=== PATIENT | female | born 1995 | race American Indian/Alaskan Native ===

== ENCOUNTER 2017-03-03 11:22 | Inpatient (IN) | payer OTHER ==
[2017-03-03] MEDS ORDERED: MINERAL OIL PO PRN (12:18)
[2017-03-03] MEDS ORDERED: ePHEDrine SULFATE IV PRN (12:18)
[2017-03-03] MEDS ORDERED: BRETHINE IVP PRN (12:18)
[2017-03-03] MEDS ORDERED: BRETHINE SUB-Q PRN (12:18)
--- NOTE | 2017-03-03 12:43 | History and Physical Report ---
History of Present Illness Date of examination: 03/03/17 Date of admission: 03/03/17 11:23 Chief complaint: SROM 10a, receives care with MD at [facility]. last visit 01/31/17. active labor History of present illness: @ 40+1, dated by LMP per patient. Pt denies complications with this . last visit to her OB was 01/31/17 denies medical hx denies surgical hx denies STI's del 04/2015 - vaginal, 6#7oz @ [facility]. complicated by pre-e Past History Past Medical History: no pertinent history Past Surgical History: no surgical history INS[employer]OR [employer] History: denies: abnormal PAP smear, cancer, chlamydia, gonorrhea, hepatitis B, hepatitis C, herpes, HIV, syphilis, trichomonas Family/Genetic History: none Social history: single. denies: smoking, alcohol abuse, prescription drug abuse , IV drug use - Obstetrical History Expected Date of Delivery: 03/02/17 Actual Gestation: 40 Week(s) 1 Day(s) : 2 Para: 1 Hx # Term Pregnancies: 1 Number of Pregnancies: 0 Spontaneous Abortions: 0 Induced : 0 Number of Living Children: 1 Medications and Allergies Allergies Allergy/AdvReac Type Severity Reaction Status Date / Time No Known Allergies Allergy Unverified 03/03/17 12:17 Active Meds: Active Medications Ephedrine Sulfate (Ephedrine Sulfate) 10 mg IV Q2M PRN PRN Reason: Hypotension Ampicillin Sodium (Polycillin/Ns 2 Gm/100 Ml) 2 gm in 100 mls @ 100 mls/hr IV ONCE ONE PRN Reason: Protocol Stop: 03/03/17 13:59 Lactated Ringer's (Lactated Ringers) 1,000 mls @ 125 mls/hr IV DIRECT MEKHI Oxytocin/Sodium Chloride (Pitocin/Ns 20 Unit/1000ml Drip) 20 units in 1,000 mls @ 125 mls/hr IV DIRECT MEKHI Oxytocin/Sodium Chloride (Pitocin/Ns 30 Unit/500ml) 30 units in 500 mls @ 1 mls /hr IV TITR MEKHI; 1 MILLIUNITS/MIN PRN Reason: Protocol Lidocaine (Xylocaine 2%) 20 ml INFILTRATI ONCE ONE Stop: 03/03/17 13:01 Mineral Oil (Mineral Oil) 30 ml PO QHS PRN PRN Reason: Constipation Terbutaline Sulfate (Brethine) 0.25 mg SUB-Q ONCE PRN PRN Reason: Hyperstimulation/Hypertonicity Terbutaline Sulfate (Brethine) 0.25 mg IVP ONCE PRN PRN Reason: Hyperstimulation/Hypertonicity Review of Systems All systems: negative - Vital Signs Vital signs: Vital Signs Pulse Pulse Ox 85 100 03/03/17 11:56 03/03/17 11:56 Temp Pulse Resp BP Pulse Ox 76 148/87 100 03/03/17 12:45 03/03/17 12:45 03/03/17 12:31 - Physical Exam Breasts: Positive: normal Cardiovascular: Regular rate Lungs: Positive: Clear to auscultation, Normal air movement Abdomen: Positive: normal appearance, soft Genitourinary (Female): Positive: normal external genitalia, normal perenium Vulva: both: normal Vagina: Positive: normal moisture Anus/Rectum: Positive: normal perianal skin Extremities: Positive: normal Deep Tendon Reflex Grade: Normal +2 Results All other labs normal. Assessment and Plan 21 y/0 @ 40+1, active labor, unknown GBS. Patient received care at w/ MD at [facility], [place]. Admission orders in EMR. Will send records request for prenatals. - Patient Problems (1) 40 weeks gestation of Current Visit: Yes Status: Acute (2) Active labor at term Current Visit: Yes Status: Acute (3) Hx of pre-eclampsia, prior , currently Current Visit: Yes Status: Acute Plan to address problem: will get Pre-e labs and monitor for s/s pre-e (4) SROM (spontaneous rupture of membranes) Onset Date: 03/03/17 Current Visit: Yes Status: Acute
--- NOTE | 2017-03-03 12:45 | Procedure Note ---
OB Delivery Note - Delivery Date of Delivery: 03/03/17 (precip del Male ) Bar And Filler Assembler: ERICA DAVISON Estimated blood loss: 200cc - Vaginal Delivery presentation: vertex Intrapartum events: PROM->1hr before delivery, precipitous labor- <3hr Delivery induction: none Delivery monitor: external FHT, external uterine Route of delivery: Delivery placenta: spontaneous Delivery cord: 3 umbilical vessels Episiotomy: none Delivery laceration: none Anesthesia: none Delivery comments: patient delivered shortly before I arrived, placenta del intact and complete. Cord blood collected. no lacerations to repair. fundus firm and lochia scant. EBL 200, apgars 8/9, wt 7#3. Mother and LDR stable. - Infant A at 1 minute: 8 at 5 minutes: 9 Infant Gender: Male (7#3oz)
[2017-03-03] MEDS ORDERED: LACTATED RINGERS 1,000 ML IV SCH (13:00)
[2017-03-03] MEDS ORDERED: PITOCin/NS 20 UNIT/1000ML DRIP 20 UNITS/1,000 ML BAG IV SCH ×2 (13:00→14:00)
[2017-03-03] MEDS ORDERED: POLYCILLIN/NS 2 GM/100 ML 2 GM/100 ML BAG IV ONE (13:00)
[2017-03-03] MEDS ORDERED: PITOCin/NS 30 UNIT/500ML 30 UNITS/500 ML BAG IV SCH (13:00)
[2017-03-03] MEDS ORDERED: XYLOCAINE 2% INFILTRATI ONE (13:00)
[2017-03-03] MEDS ORDERED: MOTRIN PO PRN (13:09)
[2017-03-03] MEDS ORDERED: TYLENOL PO PRN (13:50)
[2017-03-03] MEDS ORDERED: ZOFRAN IV PRN (13:50)
[2017-03-03] MEDS ORDERED: DULCOLAX PR PRN (13:50)
[2017-03-03] MEDS ORDERED: MILK OF MAGNESIA PO PRN (13:50)
[2017-03-03] MEDS ORDERED: PHENERGAN PO PRN (13:50)
[2017-03-03] MEDS ORDERED: SODIUM CHLORIDE FLUSH SYRINGE 10 ML IV SCH (13:50)
[2017-03-03] MEDS ORDERED: TUCKS PAD TP PRN (13:50)
[2017-03-03] MEDS ORDERED: LANSINOH TP PRN (13:50)
[2017-03-03] MEDS ORDERED: BENADRYL PO PRN (13:50)
[2017-03-03 14:15] LABS: Basophils # (Auto) 0.1 K/mm3 (0.0-0.1); Basophils % (Auto) 0.6 % (0.0-1.8); Eosinophils % (Auto) 0.3 % (0.0-4.3); Lymphocytes # (Auto) 1.5 K/mm3 (1.2-5.4); Lymphocytes % (Auto) 16.5 % (13.4-35.0); Mean Corpuscular HGB Conc 30 % (30-34); Mean Corpuscular Volume 71 fl (79-97); Monocytes # (Auto) 0.6 K/mm3 (0.0-0.8); Monocytes % (Auto) 6.9 % (0.0-7.3); Platelet Count 294 K/mm3 (140-440); Red Cell Distribution Width 19.9 % (13.2-15.2)
[2017-03-03 14:17] LABS: Hematocrit 33.1 % (30.3-42.9); Mean Corpuscular Hemoglobin 21 pg (28-32)
[2017-03-03 15:38] LABS: Alanine Aminotransferase 7 units/L (7-56); Uric Acid 4.8 mg/dL (3.5-7.6)
[2017-03-03 20:24] LABS: Bilirubin,Urine NEG (Negative); Blood,Urine LG (Negative); Color,Urine Yellow (Yellow); Nitrite,Urine NEG (Negative); Protein,Urine <15 mg/dL mg/dL (Negative); Urobilinogen,Urine < 2.0 mg/dL (<2.0)
[2017-03-03] MEDS: COLACE PO SCH (23:24)
[2017-03-03] MEDS: MOTRIN PO SCH (23:24)
[2017-03-04 00:45] LABS: Hematocrit 32.2 % (30.3-42.9); Hemoglobin 9.8 gm/dl (10.1-14.3)
[2017-03-04] MEDS: MOTRIN PO SCH ×4 (05:24→23:20)
[2017-03-04] MEDS ORDERED: BOOSTRIX IM ONE (06:00)
--- NOTE | 2017-03-04 09:01 | Discharge Summary ---
Providers - Providers Date of Admission: 03/03/17 11:23 Date of discharge: 03/04/17 (pt w/o complaints) Attending physician: CHIDI MCDONALD 03/03/17 13:50 Consult to Echocardiography Radiology Technologist [CONS] Routine Reason For Exam: assistance with , SNS Primary care physician: CHIDI MCDONALD Hospitalization Reason for admission: active labor Delivery: Episiotomy: none Laceration: none Incision: normal Other procedures: none complications: none Discharge diagnosis: IUP at term delivered baby: male Hospital course: uncomplicated vaginal delivery Pt w/o complaint VSS FF below umb Lochia scant Perineum intact H&H drop r/ t blood loss from delivery No s/sx of anemia Doing well s/p vag delivery P: d/c with instructions Pt will RTO for son's circ 1 week and PP visit in 4 weeks. Condition at discharge: Good Disposition: DC-01 TO HOME OR SELFCARE - Discharge Diagnoses (1) Normal spontaneous vaginal delivery Status: Acute Comment: RTO 4 weeks for care Plan - Provider Discharge Summary Activity: routine, no sex for 6 weeks, no heavy lifting 4 weeks, no strenuous exercise Diet: routine Instructions: routine Additional instructions: [] Smoking cessation referral if applicable(refer to patient education folder for contact #) [] Refer to [facility] Booklet Call your doctor immediately for: * Fever > 100.5 * Heavy vaginal bleeding ( >1 pad per hour) * Severe persistent headache * Shortness of breath * Reddened, hot, painful area to leg or breast * Drainage or odor from incision. * Keep incision clean and dry at all times and follow doctor's instructions regarding bathing/showering - Follow up plan Follow up: CHIDI MCDONALD MD [Primary Care Provider] - 7 Days (Call [phone] to schedule your visit in 4 weeks and your son's circumcision in one week. Bring the EMLA cream with you to his visit. DO NOT use it at home. Take medications as prescribed. Call with any concerns. [facility]: [address] [place] [address])
[2017-03-04] MEDS ORDERED: DEPO-PROVERA (CONTRACEPTION) IM ONE (09:10)
[2017-03-04] MEDS: COLACE PO SCH ×2 (12:00→22:23)
[2017-03-04] MEDS: PRENATAL VITAMIN PO SCH (18:07)
[2017-03-05] MEDS: MOTRIN PO SCH ×2 (05:23→13:42)
[2017-03-05] MEDS ORDERED: BOOSTRIX IM ONE (06:00)
[2017-03-05] MEDS ORDERED: DEPO-PROVERA (CONTRACEPTION) IM ONE (12:14)
[2017-03-05 12:49] VITALS: BP 129/88
[2017-03-05] MEDS: PRENATAL VITAMIN PO SCH (13:41)
== END 2017-03-05 14:30 | disposition home or self-care (01) | DRG 775 ==
LOC: LD 11:22 → TRG 11:22 → LD 11:23 → OB 14:20
PROVIDERS: ADMIT Obstetrics & Gynecology; ATTEND Obstetrics & Gynecology
PROC: 10E0XZZ Delivery of Products of Conception, External Approach (ICD-10-PCS; principal; 2017-03-03)
DX: O62.3 Precipitate labor (principal); O42.02 Full-term premature rupture of membranes, onset of labor within 24 hours of rupture; Z60.2 Problems related to living alone; Z3A.40 40 weeks gestation of pregnancy; Z37.0 Single live birth
CPT/HCPCS: 36415; 81001; 82565; 83615; 84450; 84460; 84550; 85014; 85018; 85025; 86592; 86706; 86762; 86850; 86900; 86901; 87806; 90471; 90715; 99211; G0463; J0290; J1050; J2590; J7120

== ENCOUNTER 2017-06-11 20:42 | Emergency (ER) | payer OTHER ==
[2017-06-11 22:16] LABS: HCG Qualitative,Urine Negative (Negative)
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
[2017-06-12] MEDS ORDERED: XYLOCAINE 1% MPF 5 mL INFILTRATI ONE (01:22)
[2017-06-12] MEDS ORDERED: NACL 0.9% IR ONE (01:22)
[2017-06-12] MEDS ORDERED: MOTRIN PO ONE (01:22)
[2017-06-12] MEDS ORDERED: KEFLEX PO ONE (01:23)
[2017-06-12 04:37] VITALS: BP 117/71
== END 2017-06-12 04:35 | disposition home or self-care (01) ==
LOC: ED 20:42
DX: S01.81XA Laceration without foreign body of other part of head, initial encounter (principal); Y04.0XXA Assault by unarmed brawl or fight, initial encounter; Y93.89 Activity, other specified; Y92.89 Other specified places as the place of occurrence of the external cause; Y99.8 Other external cause status
CPT/HCPCS: 70450; 81025

== ENCOUNTER 2017-06-18 18:37 | Emergency (ER) | payer OTHER ==
[2017-06-18 19:21] VITALS: BP 142/87
--- NOTE | 2017-06-18 21:23 | Emergency Department Report ---
Suture/Staple Removal - [facility] Chief Complaint: Laceration/Recheck/Suture Stated Complaint: SUTURE REMOVAL Time Seen by Provider: 06/18/17 21:23 When Sutures or Jaycee Placed: 5-7 Days Ago Wound Location: right eyebrow sutures placed 7 days ago. Patient states there were 5 ED Review of Systems ROS: Stated complaint: SUTURE REMOVAL Other details as noted in HPI Constitutional: denies: chills, fever Eyes: denies: eye pain, eye discharge, vision change ENT: denies: ear pain, throat pain Respiratory: denies: cough, shortness of breath, wheezing Cardiovascular: denies: chest pain, palpitations Endocrine: no symptoms reported Gastrointestinal: denies: abdominal pain, nausea, diarrhea Genitourinary: denies: urgency, dysuria, discharge Musculoskeletal: denies: back pain, joint swelling, arthralgia Skin: as per HPI (sutures placed above the right eyebrow 7 days ago). denies: rash, lesions Neurological: denies: headache, weakness, paresthesias Psychiatric: denies: anxiety, depression Hematological/Lymphatic: denies: easy bleeding, easy bruising ED Past Medical Hx - Past Medical History Previous Medical History?: No Hx Hypertension: No Hx Congestive Heart Failure: No Hx Diabetes: No Hx Deep Vein Thrombosis: No Hx Renal Disease: No Hx Sickle Cell Disease: No Hx Seizures: No Hx Asthma: No Hx COPD: No Hx HIV: No - Surgical History Past Surgical History?: No - Social History Smoking Status: Never Smoker Substance Use Type: None - Medications Home Medications: Home Medications Medication Instructions Recorded Confirmed Last Taken Type Docusate Sodium [Colace] 100 mg PO BID PRN #60 capsule 03/04/17 Unknown Rx Ferrous Sulfate [Feosol 325 MG tab] 325 mg PO BID #60 tablet 03/04/17 Unknown Rx Ibuprofen [Motrin 800 MG tab] 800 mg PO TID PRN #30 tablet 03/04/17 Unknown Rx Lidocain2.5%/Prilocai2.5% [Emla] 5 gm TP PRN #1 tube 03/04/17 Unknown Rx Cephalexin [Keflex] 500 mg PO Q8H 7 Days #21 capsule 06/12/17 Unknown Rx Ibuprofen [Motrin] 600 mg PO Q8H PRN #12 tablet 06/12/17 Unknown Rx Bacitracin Zinc Oint [Antibiotic 1 applicatio TP BID #1 tube 06/18/17 Unknown Rx Oint] Suture Removal Exam - Exam General: Vital signs noted. No distress. Alert and acting appropriately. Wound: No Pathologic Erythema, No Tenderness, No Drainage, No Pus, No Wound Dehiscence (area appears clean and no signs of infection or purulence no fluctuance no wound dehiscence.) Other Systems: All other systems reviewed and are unremarkable. ED Course Vital Signs 06/18/17 06/18/17 19:17 19:22 Temperature 98.3 F 98.3 F Pulse Rate 70 Blood Pressure 142/87 O2 Sat by Pulse 100 Oximetry ED Recheck MDM - Differential Diagnosis Suture/Staple Removal - Medical Decision Making A/P: Suture removal right eyebrow 1-topical bacitracin. No clinical signs of infection. No dehiscence. Has healed well 2-5 nylon sutures removed from site of laceration repair Critical care attestation.: If time is entered above; I have spent that time in minutes in the direct care of this critically ill patient, excluding procedure time. ED Disposition Clinical Impression: Visit for suture removal Disposition: DC-01 TO HOME OR SELFCARE Is pt being admited?: No Does the pt Need Aspirin: No Condition: Stable Instructions: Suture Removal (ED) Prescriptions: Bacitracin Zinc Oint [Antibiotic Oint] 1 applicatio TP BID #1 tube Referrals: [facility] [Provider Group] - 3-5 Days Forms: Work/School Release Form(ED) Time of Disposition: 21:48
== END 2017-06-18 21:50 | disposition home or self-care (01) ==
LOC: ED 18:37
DX: S01.111D Laceration without foreign body of right eyelid and periocular area, subsequent encounter (principal); X58.XXXD Exposure to other specified factors, subsequent encounter

== ENCOUNTER 2018-09-27 19:17 | Inpatient (IN) | payer OTHER ==
[2018-09-27 19:46] VITALS: BP 123/58
[2018-09-27] MEDS ORDERED: ZITHROMAX 500 MG in NACL 0.9% 250ML 250 ML IV ONE (20:00)
[2018-09-27] MEDS ORDERED: LACTATED RINGERS 1,000 ML IV SCH (20:00)
== END 2018-09-27 20:40 | disposition home or self-care (01) | DRG 833 ==
LOC: LD 19:17
PROVIDERS: ADMIT Obstetrics & Gynecology; ATTEND Obstetrics & Gynecology
DX: O98.813 Other maternal infectious and parasitic diseases complicating pregnancy, third trimester (principal); Z3A.38 38 weeks gestation of pregnancy; Z86.711 Personal history of pulmonary embolism; Z79.01 Long term (current) use of anticoagulants
CPT/HCPCS: G0378; J0456; J7050; J7120

== ENCOUNTER 2018-10-03 11:12 | Inpatient (IN) | payer OTHER ==
[2018-10-03] MEDS ORDERED: BRETHINE IVP PRN (12:56)
[2018-10-03] MEDS ORDERED: SUBLIMAZE IV PRN (12:56)
[2018-10-03] MEDS ORDERED: XYLOCAINE 2% INFILTRATI ONE (12:56)
[2018-10-03] MEDS ORDERED: BRETHINE SUB-Q PRN (12:56)
[2018-10-03] MEDS ORDERED: ZOFRAN IV PRN (12:56)
[2018-10-03] MEDS ORDERED: MINERAL OIL PO PRN (12:56)
[2018-10-03] MEDS ORDERED: PITOCin/NS 20 UNIT/1000ML DRIP 20 UNITS/1,000 ML BAG IV SCH (13:00)
[2018-10-03] MEDS ORDERED: PITOCin/NS 30 UNIT/500ML 30 UNITS/500 ML BAG IV SCH (13:00)
--- NOTE | 2018-10-03 13:28 | History and Physical Report ---
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 no EDC Calculations LMP: 01/10/2019 Past History : 3 Term Births: 2 Premature Births: 0 Living Children: 2 Para: 2 Mult. Births: 0 Prev : 0 Aborta: 0 Elect. Ab: 0 Spont. Ab: 0 Ectopics: 0 # 1 Delivery date: 03/03/2017 Weeks Gestation: 40+1 Delivery type: Vaginal Hours of labor: 2 Anesthesia type: none Delivery location: [facility] Infant Sex: male weight: 7.19 Comments: precip delivery # 2 Delivery date: 2016 Weeks Gestation: term labor: no Delivery type: Infant Sex: Male weight: 6#7oz Risk Factors: Smoked Tobacco Use: Never smoker Smokeless Tobacco Use: Never Passive smoke exposure: no Drug use: no HIV high-risk behavior: no Alcohol use: yes Drinks per day: <1 Exercise: no Seatbelt use: 100 % Past Medical History: PE - 08/2017 Past Surgical History: Negative Past Surgical History Past Medical History Anesthesia Complications: negative Anemia: negative Autoimmune Disorder: negative Bleeding Disorder: positive, hx PE 2017 Blood Transfusions: negative Breast Disease: negative Diabetes: negative Heart Disease: negative Hypertension: positive, pre-e with first delivery 2015 Hepatitis/Liver Disease: negative Kidney Disease/UTI: negative Neurologic/Epilepsy/Migraines: negative Phlebitis/Varicosities: negative Psychiatric: negative Pulmonary Disease/Asthma: negative Thyroid Disease: negative Surgery (Non-ebd teacher): Negative Past Surgical History Abnormal PAP: negative Family Hx: Lupus - sister DM - MGF Social Hx: Single no ETOH/Drugs/Smoking Working in [employer] Infection History Hx of STD: Trich HIV Risk Eval: no Hepatitis B Risk Eval: low risk Personal hx. of genital herpes: no Partner hx. of genital herpes: no Varicella/Chicken Pox Status: Unknown Genetic History Congenital Heart Defect: Mom: no Dad: no Shlomo Disease: Mom: no Dad: no Thalassemia Mom: no Dad: no Neural Tube Defect Mom: no Dad: no Down's Syndrome Mom: no Dad: no Ted-Sachs Mom: no Dad: no Sickle Cell Disease/Trait Mom: no Dad: no Hemophilia Mom: no Dad: no Muscular Dystrophy Mom: no Dad: no Cystic Fibrosis Mom: no Dad: no [place] Chorea Mom: no Dad: no Mental Retardation Mom: no Dad: no Fragile X Mom: no Dad: no Other Genetic/Chromosomal Disorder Mom: no Dad: no Child w/other defect Mom: no Dad: no Enviromental Exposures Xray Exposure: no Medication, drug, or alcohol use since LMP: no Chemical/Other Exposure: no Exposure to Cat Liter: no Hx of Parvovirus (Fifth Disease): no Occupational Exposure to Children: none Active Medications: LOVENOX 40 MG/0.4ML SUBCUTANEOUS SOLUTION (ENOXAPARIN SODIUM) 40mg SQ daily PLUS 27-1 MG ORAL TABLET ( VIT-FE FUMARATE-FA) 1 po daily Current Allergies (reviewed today): No known allergies Past History Past Medical History: other (see HPI) Past Surgical History: other (see HPI) 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 SPECIALIST History: other (see HPI) Family/Genetic History: other (see HPI) Social history: other (see HPI) - Obstetrical History : 3 Medications and Allergies Allergies Allergy/AdvReac Type Severity Reaction Status Date / Time No Known Allergies Allergy Verified 09/27/18 22:04 Home Medications Medication Instructions Recorded Confirmed Last Taken Type Docusate Sodium [Colace] 100 mg PO BID PRN #60 capsule 03/04/17 Unknown Rx Ferrous Sulfate [Feosol 325 MG tab] 325 mg PO BID #60 tablet 03/04/17 Unknown Rx Ibuprofen [Motrin 800 MG tab] 800 mg PO TID PRN #30 tablet 03/04/17 Unknown Rx Lidocain2.5%/Prilocai2.5% [Emla] 5 gm TP PRN #1 tube 03/04/17 Unknown Rx Cephalexin [Keflex] 500 mg PO Q8H 7 Days #21 capsule 06/12/17 Unknown Rx Ibuprofen [Motrin] 600 mg PO Q8H PRN #12 tablet 06/12/17 Unknown Rx Bacitracin Zinc Oint [Antibiotic 1 applicatio TP BID #1 tube 06/18/17 Unknown Rx Oint] Active Meds: Active Medications Ephedrine Sulfate (Ephedrine Sulfate) 10 mg IV Q2M PRN PRN Reason: Hypotension Fentanyl (Sublimaze) 100 mcg IV Q2H PRN PRN Reason: Labor Pain Oxytocin/Sodium Chloride (Pitocin/Ns 20 Unit/1000ml Drip) 20 units in 1,000 mls @ 125 mls/hr IV DIRECT MEKHI Oxytocin/Sodium Chloride (Pitocin/Ns 30 Unit/500ml) 30 units in 500 mls @ 4 mls/hr IV Q30MIN MEKHI; Protocol Lactated Ringer's (Lactated Ringers) 1,000 mls @ 125 mls/hr IV DIRECT MEKHI Mineral Oil (Mineral Oil) 30 ml PO QHS PRN PRN Reason: Constipation Ondansetron HCl (Zofran) 4 mg IV Q8H PRN PRN Reason: Nausea And Vomiting Terbutaline Sulfate (Brethine) 0.25 mg SUB-Q ONCE PRN PRN Reason: Hyperstimulation/Hypertonicity Terbutaline Sulfate (Brethine) 0.25 mg IVP ONCE PRN PRN Reason: Hyperstimulation/Hypertonicity Review of Systems All systems: negative - Physical Exam Cardiovascular: Regular rate, Normal S1, Normal S2 Lungs: Positive: Clear to auscultation, Normal air movement Abdomen: Positive: normal appearance, soft, normal bowel sounds. Negative: distention, tenderness Genitourinary (Female): Positive: normal external genitalia, normal perenium Vulva: both: normal Vagina: Positive: normal moisture. Negative: discharge Cervix: Negative: lesion, discharge Uterus: Positive: normal size, normal contour Adnexa: both: normal Anus/Rectum: Positive: normal perianal skin. Negative: rectal mass, hemorrhoids Extremities: Positive: normal Deep Tendon Reflex Grade: Normal +2 - Obstetrical FHR: auscultation normal Results Result Diagrams: 10/03/18 13:12 All other labs normal. Assessment and Plan 22y.o. IUP at 39w0d presents for admission for scheduled IOL per [facility] d/t hx of PE. SVE on arrival is 4/70/-2, vertex, IBOW. Routine admission orders placed in EMR, plan for pitocin induction per protocol. GBS is negative. Patient plans for natural labor. Anticipate .
[2018-10-03 14:12] LABS: Hematocrit 30.3 % (30.3-42.9); Hemoglobin 9.4 gm/dl (10.1-14.3); Mean Corpuscular HGB Conc 31 % (30-34); Platelet Count 333 K/mm3 (140-440); Red Blood Count 4.38 M/mm3 (3.65-5.03); Red Cell Distribution Width 19.8 % (13.2-15.2)
[2018-10-03 14:17] LABS: Mean Corpuscular Volume 69 fl (79-97)
--- NOTE | 2018-10-03 16:15 | Progress Note ---
Subjective - Subjective Date of service: 10/03/18 Principal diagnosis: IUP at term IOL for pervous anticogaulant therapy Interval history: Pt states she has not taken lovenox since visit last week. She has no c/o at this time. IOL was d/w pt and questions were addressed and answered.She did get treatment for the chlamydia diagnosed last 3rd trimester on last week while in triage. Patient reports: new complaints Objective - Vital Signs Vital Signs: Vital Signs - 12hr 10/03/18 10/03/18 10/03/18 14:38 15:34 16:04 Pulse Rate 115 H 97 H 78 Blood Pressure 108/64 100/62 112/67 - Exam FHR: category 1 Cervical Dilatation: 4 Cervical Effacement Percentage: 60 station: -1 - Labs Labs: Abnormal Labs 10/03/18 13:12 Hgb 9.4 L MCV 69 L MCH 22 L RDW 19.8 H Laboratory Results - last 24 hr 10/03/18 10/03/18 13:12 13:12 WBC 7.3 RBC 4.38 Hgb 9.4 L Hct 30.3 MCV 69 L MCH 22 L MCHC 31 RDW 19.8 H Plt Count 333 Blood Type B POSITIVE
[2018-10-03] MEDS: LACTATED RINGERS 1,000 ML IV SCH ×3 (17:00→21:58)
[2018-10-03] MEDS ORDERED: MARCAINE 0.25% INFILTRATI ONE (21:54)
[2018-10-03] MEDS ORDERED: NARCAN 2 MG/2 ML IV PRN (22:55)
--- NOTE | 2018-10-03 22:56 | Anesthesia Consultation ---
Anesthesia Consult and Med Hx Date of service: 10/03/18 - Airway Anesthetic Teeth Evaluation: Good ROM Head & Neck: Adequate Mental/Hyoid Distance: Adequate Mallampati Class: Class II Intubation Access Assessment: Probably Good - Pulmonary Exam CTA: Yes - Cardiac Exam Cardiac Exam: RRR - Pre-Operative Health Status ASA Pre-Surgery Classification: ASA2 Proposed Anesthetic Plan: Epidural - Pulmonary Hx Smoking: No Hx Asthma: No Hx Respiratory Symptoms: No SOB: No COPD: No Home Oxygen Therapy: No Hx Pneumonia: No Hx Sleep Apnea: No - Cardiovascular System Hx Hypertension: No Hx Coronary Artery Disease: No Hx Heart Attack/AMI: No Hx Angina: No Hx Percutaneous Transluminal Coronary Angioplasty (PTCA): No Hx Cardia Arrhythmia: No Hx Pacemaker: No Hx Internal Defibrillator: No Hx Valvular Heart Disease: No Hx Heart Murmur: No Hx Peripheral Vascular Disease: No - Central Nervous System Hx Neuromuscular Disorder: No Hx Seizures: No CVA: No Hx Back Pain: No Hx Psychiatric Problems: No - Gastrointestinal Hx Ulcer: No Hx Gastroesophageal Reflux Disease: Yes - Endocrine Hx Renal Disease: No Hx End Stage Renal Disease: No Hx Cirrhosis: No Hx Liver Disease: No Hx Insulin Dependent Diabetes: No Hx Non-Insulin Dependent Diabetes: No Hx Thyroid Disease: No Hx Hypothyroidism: No Hx Hyperthyroidism: No - Hematic Hx Anemia: No Hx Sickle Cell Disease: No - Other Systems Hx Alcohol Use: No Hx Substance Use: No Hx Cancer: No Hx Obesity: No
[2018-10-03] MEDS ORDERED: fentaNYL-BUPIV 2 MCG/ML-0.125% 200 MCG/100 ML BAG EPIDURAL SCH (23:00)
--- NOTE | 2018-10-04 00:46 | Procedure Note ---
OB Delivery Note - Delivery Date of Delivery: 10/04/18 Raw Sampler: JOSÉ MIGUEL ORTEGA Estimated blood loss: 200cc - Vaginal Delivery presentation: vertex Delivery position: OA Delivery induction: oxytocin Delivery monitor: external FHT, external uterine Route of delivery: Delivery placenta: spontaneous Episiotomy: none Delivery laceration: none Anesthesia: epidural Delivery comments: of viable female over intact perineum. placed skin to skin on maternal abdomen, drying and tactile stimulation produces vigorous cry. Cord clamped x2 upon cessation of pulsation and cut by FOC. Placenta delivered complete and intact, 3vc. Pitocin to IV. Fundus is firm, ML. Hemostasis achieved. VSSAF. Patient reports she is comfortable. Infant apgars 8/9, wt 3077 grams. Mother and infant remain LDR stable.
[2018-10-04] MEDS ORDERED: PHENERGAN PO PRN ×2 (00:54→03:53)
[2018-10-04] MEDS ORDERED: BENADRYL PO PRN ×2 (00:54→03:53)
[2018-10-04] MEDS ORDERED: DULCOLAX PR PRN ×2 (00:54→03:53)
[2018-10-04] MEDS ORDERED: MILK OF MAGNESIA PO PRN ×2 (00:54→03:53)
[2018-10-04] MEDS ORDERED: TUCKS PAD TP PRN ×2 (00:54→03:53)
[2018-10-04] MEDS ORDERED: TYLENOL PO PRN ×2 (00:54→03:53)
[2018-10-04] MEDS ORDERED: ZOFRAN IV PRN ×2 (00:54→03:53)
[2018-10-04] MEDS ORDERED: LANSINOH TP PRN ×2 (00:54→03:53)
[2018-10-04] MEDS ORDERED: PITOCin/NS 20 UNIT/1000ML DRIP 20 UNITS/1,000 ML BAG IV SCH (01:00)
[2018-10-04] MEDS ORDERED: SODIUM CHLORIDE FLUSH SYRINGE 10 ML IV PRN ×2 (01:00→04:00)
[2018-10-04] MEDS ORDERED: IBUPROFEN PO SCH (01:00)
[2018-10-04] MEDS ORDERED: PHENERGAN PR PRN (03:53)
--- NOTE | 2018-10-04 07:57 | Event Note ---
Date: 10/04/18 Pt <12 hrs post . Recieved resting in bed quitely with eyes closed. VSSAF. H/H due at 1600. Bleeding mild to moderate. Denies pain at this time. BF without difficulty. All questions addressed. JORGE Boss
[2018-10-04] MEDS: PRENATAL VITAMIN PO SCH (09:09)
[2018-10-04] MEDS: IBUPROFEN PO SCH ×3 (09:10→20:00)
[2018-10-04] MEDS ORDERED: PRENATAL VITAMIN PO SCH (10:00)
[2018-10-04] MEDS: LOVENOX SUB-Q SCH (13:53)
[2018-10-04 16:53] LABS: Hematocrit 26.8 % (30.3-42.9); Hemoglobin 8.3 gm/dl (10.1-14.3)
[2018-10-05] MEDS: IBUPROFEN PO SCH ×2 (00:35→06:32)
[2018-10-05] MEDS ORDERED: BOOSTRIX IM ONE (06:00)
[2018-10-05] MEDS ORDERED: FEOSOL PO SCH (10:00)
[2018-10-05] MEDS ORDERED: COLACE PO SCH (10:00)
--- NOTE | 2018-10-05 10:19 | Discharge Summary ---
Providers - Providers Date of Admission: 10/03/18 23:05 Date of discharge: 10/05/18 (patient desires discharge today) Attending physician: CHIDI MCDONALD 10/04/18 02:38 Consult to Case Management [CONS] Routine Services Needed at Discharge: Aluminum Siding Mechanic Notified:: case management Phone number called:: [phone] Additional Physician Instructions: Concern for patient available support system at home with three small children. Per RN, pt was left briefly in room alone with and two toddler children immediately . Also, RN voiced concern for how pt's FOC was handling pt's two older children stating he was "rough" with them. Primary care physician: CHIDI MCDONALD Hospitalization Reason for admission: IOL for hx of PE, on lovenox Condition: Good Pertinent studies: post delivery H&H 8.3/26.8, pre existing anemia prior to delivery, patient is asymptomatic, Fe ordered. Procedures: Hospital course: uncomplicated delivery and course Disposition: DC-01 TO HOME OR SELFCARE Core Measure Documentation - Palliative Care Palliative Care/ Comfort Measures: Not Applicable - Core Measures Any of the following diagnoses?: none Exam - Constitutional Vitals: Temp Pulse Resp BP Pulse Ox 97.9 F 71 20 108/69 99 10/05/18 08:03 10/05/18 08:03 10/05/18 08:03 10/05/18 08:03 10/05/18 08:03 General appearance: Present: no acute distress, well-nourished - EENT Eyes: Present: PERRL ENT: hearing intact, clear oral mucosa - Neck Neck: Present: supple, normal ROM - Respiratory Respiratory effort: normal Respiratory: bilateral: CTA - Cardiovascular Rhythm: regular Heart Sounds: Present: S1 & S2. Absent: rub, click - Extremities Extremities: pulses symmetrical, No edema Peripheral Pulses: within normal limits - Abdominal General gastrointestinal: Present: soft, non-tender, non-distended, normal bowel sounds Female genitourinary: Present: normal - Integumentary Integumentary: Present: clear, warm, dry - Musculoskeletal Musculoskeletal: gait normal, strength equal bilaterally - Psychiatric Psychiatric: appropriate mood/affect, intact judgment & insight - Neurologic Neurologic: CNII-XII intact, moves all extremities - Additional findings Additional findings: Patient resting in bed nursing , she denies any complaints or concerns. Fundus is firm, ML, U/2. Vaginal bleeding is minimal, patient denies any heavy bleeding or clots. Patient reports pain is well controlled with medication. She reports breast feeding is going well, denies any breast complaints. Reviewed labs with patient, she denies any dizziness or feeling faint with ambulation or position changes. Encouraged to increase water intake. Assessment WNL, STEPHANIE. lung sounds clear. She denies any chest pain, SOB, cough, palpitations, or any other symptoms. Patient reports she has prescription/medication already for lovenox to take . Patient understands to continue taking it for 6 weeks as directed by [facility]. Pt understands to call or present to ED with any s/s of PE or any other concerns. Plan Diet: regular Additional Instructions: continue lovenox injections as scheduled for 6 weeks per [facility] instructions. 40mg/0.4ml subcutaneous every day Follow up with: CHIDI MCDONALD MD [Primary Care Provider] - 11/02/18 (Congratulations! Please call [phone] to schedule your appointment in 4 weeks. Call with any questions or concerns. ) Prescriptions: Docusate Sodium [Colace] 100 mg PO BID PRN #60 capsule PRN Reason: Constipation Ferrous Sulfate [Feosol 325 MG tab] 325 mg PO BID #60 tablet
[2018-10-05] MEDS: LOVENOX SUB-Q SCH (10:55)
[2018-10-05] MEDS: PRENATAL VITAMIN PO SCH (10:56)
[2018-10-05] MEDS ORDERED: LOVENOX SUB-Q SCH (12:30)
[2018-10-05 13:14] VITALS: BP 117/75
== END 2018-10-05 20:28 | disposition home or self-care (01) | DRG 807 ==
LOC: TRG 11:12 → LD 11:12 → TRG 11:14 → LD 23:05 → OB 10-04 02:30
PROVIDERS: ADMIT Obstetrics & Gynecology; ATTEND Obstetrics & Gynecology
PROC: 10E0XZZ Delivery of Products of Conception, External Approach (ICD-10-PCS; principal; 2018-10-04)
PROC: 3E033VJ Introduction of Other Hormone into Peripheral Vein, Percutaneous Approach (ICD-10-PCS; 2018-10-04)
PROC: 3E0R3BZ Introduction of Anesthetic Agent into Spinal Canal, Percutaneous Approach (ICD-10-PCS; 2018-10-04)
PROC: 00HU33Z Insertion of Infusion Device into Spinal Canal, Percutaneous Approach (ICD-10-PCS; 2018-10-04)
DX: O99.62 Diseases of the digestive system complicating childbirth (principal); Z37.0 Single live birth; O99.02 Anemia complicating childbirth; D64.9 Anemia, unspecified; K21.9 Gastro-esophageal reflux disease without esophagitis; Z3A.39 39 weeks gestation of pregnancy
CPT/HCPCS: 36415; 85014; 85018; 85027; 86592; 86850; 86900; 86901; G0378; A6250; J1650; J2590; J7120